=== PATIENT | female | born 1995 | race Caucasian/White ===

== ENCOUNTER 2021-05-31 21:57 | Emergency (ER) | payer SELFPAY ==
[2021-05-31 21:58] VITALS: BP 115/99; PULSE 76; RESP 18; TEMP 37.2; O2SAT 100
--- NOTE | 2021-05-31 23:17 | ED.GENADULT ---
HPI - General Adult General Chief complaint: Skin/Abscess/Foreign Body Stated complaint: bleeding from lip piercing Time Seen by Provider: 05/31/21 23:02 Source: patient Mode of arrival: EMS Limitations: no limitations History of Present Illness HPI narrative: Patient is a 26-year-old female complaining of bleeding of her lip piercing. Patient states that she had her lip pierced a few days ago. Patient states that she might of actually pulled on it and that is why it is bleeding. Patient denies any other pain or injury. Patient's not on any oral anticoagulants. Related Data Allergies Allergy/AdvReac Type Severity Reaction Status Date / Time No Known Allergies Allergy Unverified 01/29/16 22:43 Review of Systems Review of Systems: All systems reviewed & are unremarkable except as noted in HPI and below PMFSH Comments Past medical history: None Family history: Noncontributory Social history: Non-smoker no EtOH or drug use. Exam Const: General: healthy appearing, no acute distress and alert Nutritional Appearance: well nourished Orientation/consciousness: patient oriented x3 HENMT: Head: normal to inspection General nose exam: Normal external nose present Face and sinus: normal facial exam Mouth: Yes Normal oral and palatal mucosa present Throat: posterior oropharynx normal Other: Lower lip piercing, negative for any significant swelling or redness. Negative for any signs of abscess or cellulitis. No active bleeding. Eyes: Conjunctivae: conjunctivae normal Neck: Neck: normal visual inspection Course Vital Signs Vital signs: Vital Signs Temperature 37.2 C 05/31/21 21:58 Pulse Rate 76 05/31/21 21:58 Respiratory Rate 18 05/31/21 21:58 Blood Pressure 115/99 H 05/31/21 21:58 Pulse Oximetry 100 05/31/21 21:58 Temperature 37.2 C 05/31/21 21:58 Pulse Rate 76 05/31/21 21:58 Respiratory Rate 18 05/31/21 21:58 Blood Pressure 115/99 H 05/31/21 21:58 Pulse Oximetry 100 05/31/21 21:58 Medical Decision Making [facility] Narrative Medical decision making narrative: Patient reexamined, bleeding resolved Vital Signs Vital Signs: Vital Signs Temperature 37.2 C 05/31/21 21:58 Pulse Rate 76 05/31/21 21:58 Respiratory Rate 18 05/31/21 21:58 Blood Pressure 115/99 H 05/31/21 21:58 Pulse Oximetry 100 05/31/21 21:58 Temperature 37.2 C 05/31/21 21:58 Pulse Rate 76 05/31/21 21:58 Respiratory Rate 18 05/31/21 21:58 Blood Pressure 115/99 H 05/31/21 21:58 Pulse Oximetry 100 05/31/21 21:58 Discharge Plan Discharge Clinical Impression: Bleeding Patient Disposition: Home, Self-Care Condition: Improved Additional Instructions: Clean piercing daily as instructed Follow-up/Referrals: PHYSICIAN,BLOCKER POLISHING [Primary Care Provider] - Time of Disposition: 00:31
[2021-05-31] MEDS: TETANUS,DIPHTHERIA,AC PERTUSSIS ADULT (0.5 ML) BOOSTRIX IM (23:31)
[2021-06-01 00:36] VITALS: BP 109/78; PULSE 78; RESP 16; O2SAT 100
== END 2021-06-01 00:38 | disposition home or self-care (01) ==
PROVIDERS: Emergency Provider Emergency Medicine
DX: S01.541A Puncture wound with foreign body of lip, initial encounter (principal); Z23 Encounter for immunization; W45.8XXA Other foreign body or object entering through skin, initial encounter
CPT/HCPCS: 90471; 90715; 99282

== ENCOUNTER 2022-11-23 15:43 | Emergency (ER) | payer OTHER, SELFPAY ==
--- NOTE | ~2022-11-23 | US_ITS ---
EXAMINATION: US transvaginal DATE: 11/23/2022 22:30 INDICATION: RLQ pain w/ ovarian cyst, r/o torsion TECHNIQUE: Multiple transabdominal and endovaginal sonographic images of the pelvis were obtained. COMPARISON: CT abdomen and pelvis, same date. FINDINGS: Uterus: 6.4 x 3.7 x 4.3 cm. Endometrial complex measures 13 mm. Right Ovary: 2.2 x 5.1 x 7.6 cm. Vascular flow is present. 7.7 cm simple ovarian cyst. Left Ovary: 3.4 x 2.0 x 1.5 cm. Vascular flow is present. There is no free fluid in the pelvis. IMPRESSION: 7.7 cm simple right ovarian cyst, for which gynecology referral should be considered, given that symp tomatic cysts of this size may be resected. No sonographic evidence of ovarian torsion. Otherwise nor mal pelvic sonogram findings. Reviewed, dictated and finalized at location K. FIGHTING EQUIPMENT SPECIALIST IMPRESSION: 7.7 cm simple right ovarian cyst, for which gynecology referral should be consi dered, given that symptomatic cysts of this size may be resected. No sonographi c evidence of ovarian torsion. Otherwise normal pelvic sonogram findings.
--- NOTE | ~2022-11-23 | CT_ITS ---
EXAMINATION: CT abdomen pelvis w con DATE: 11/23/2022 21:13 INDICATION: RLQ pain TECHNIQUE: Computed tomography (CT) of the abdomen and pelvis was performed with 100 mL Omnipaque-350 intravenous contrast. Automated exposure control and iterative reconstruction technique were employe d. The dose-length product was 372.56 mGy-cm. COMPARISON: None. FINDINGS: Lower thorax: Unremarkable Liver: Normal. Biliary/Gallbladder: Gallbladder is absent. No bile duct dilation. Pancreas: No mass or duct dilation. Spleen: Normal. Adrenals:No mass. Kidneys: Subcentimeter left upper pole hypodensity, too small to characterize but most likely represe nts a cyst. Left inferior pole scar. No suspicious mass, stone, or hydronephrosis. GI tract: Mild distal esophageal wall edema. No small or large bowel dilation. Normal appendix. Mesentery/Peritoneum: No ascites, mass, or free air. Retroperitoneum: No mass. Pelvis: 7.7 cm simple appearing right ovarian cyst, no septations or nodularity. The remaining pelvic organs are within normal limits. Soft Tissues: Soft tissues and body wall unremarkable. Bones: No acute osseous finding. IMPRESSION: Esophagitis. 7.7 cm simple appearing right ovarian cyst. Consider pelvic ultrasound for further ambrose cterization and to a establish a baseline for follow-up. Also consider gynecology referral, given kelly t symptomatic cysts of this size may undergo surgical resection. Reviewed, dictated and finalized at location K. SPLANT COORDINATOR IMPRESSION: Esophagitis. 7.7 cm simple appearing right ovarian cyst. Consider pelvic ultras ound for further characterization and to a establish a baseline for follow-up. Also consider gynecology referral, given that symptomatic cysts of this size ma y undergo surgical resection.
[2022-11-23 15:57] VITALS: BP 127/96; PULSE 111; RESP 20; TEMP 37.2; O2SAT 98
[2022-11-23 16:28] LABS: Basophils Absolute Auto 0.1 K/mm3 (0.0-0.1); Basophils Percent Auto 0.9 % (0.2-1.2); Eosinophils Absolute Auto 0.1 K/mm3 (0-0.3); Eosinophils Percent Auto 1.3 % (0-4.4); Hematocrit 41.6 % (37.0-47.0); Hemoglobin 13.8 g/dL (12.0-15.0); Immature Granulocyte Absolute 0.02 K/mm3 (0.00-0.031); Immature Granulocyte Percent A 0.3 % (0-0.5); Lymphocytes Absolute Auto 2.61 K/mm3 (0.9-3.2); Lymphocytes Percent Auto 33.6 % (18.3-44.2); Mean Corpuscular HGB Conc 33.2 g/dl (32-36); Mean Corpuscular Hemoglobin 29.6 pg (26-34); Mean Corpuscular Volume 89.3 fl (80-100); Mean Platelet Volume 9.6 fl (7.4-10.4); Monocytes Absolute Auto 0.5 K/mm3 (0.1-0.6); Neutrophils Absolute Auto 4.4 K/mm3 (1.3-6.7); Neutrophils Percent Auto 56.9 % (45.5-73.1); Platelet Count Result 285 k/mm3 (150-375); Red Blood Count 4.66 M/mm3 (4.2-5.4); Red Cell Distribution Width 12.1 % (11.5-14.5); White Blood Count 7.8 K/mm3 (4.5-10.0)
[2022-11-23 16:29] LABS: Appearance Urine Clear (Clear); Bilirubin Urine Negative (Negative); Blood Urine Negative (Negative); Color Urine Yellow (Yellow); Glucose Urine UA Negative (Negative); Ketones Urine Negative (Negative); Leukocyte Esterase Ur Negative LEU/UL (Negative); Nitrate Urine Negative (Negative); Protein Urine Negative (Negative); Urobilinogen Urine 0.2 mg/dL (<2.0)
[2022-11-23 16:31] LABS: Add Urine Microscopic? NO
[2022-11-23 16:39] LABS: Alanine Aminotransferase 23 U/L (6-35); Albumin Level 4.8 g/dL (3.5-5.1); Alkaline Phosphatase 51 U/L (38-126); Anion Gap 4 mmol/L (8-16); Aspartate Amino Transferase 24 U/L (14-36); Bilirubin,Total 0.7 mg/dL (0.2-1.3); Blood Urea Nitrogen 16 mg/dL (7-17); Calcium 9.3 mg/dL (8.4-10.2); Carbon Dioxide 30 mmol/L (22-30); Chloride 103 mmol/L (98-107); Estimated CRCL calculation 94 ml/min; Estimated Glomerular Filt Rate > 60; Glucose 93 mg/dL (65-110); Lipase 129 U/L (23-300); Potassium 4.3 mmol/L (3.4-5.0); Sodium 137 mmol/L (137-145)
[2022-11-23 20:13] LABS: Pregnancy On Board Control Positive; Urine Pregnancy Test Negative
--- NOTE | 2022-11-23 20:25 | ED.GENADULT ---
HPI - General Adult General Chief complaint: Abdominal Pain Stated complaint: abd pain Time Seen by Provider: 11/23/22 19:23 History of Present Illness HPI narrative: This is a 27-year-old female presenting ED with right lower quadrant pain. She described as a stabbing pain that radiates up into her flank and 3/10 in intensity. The pain comes and goes. She says she has felt pain like this before when she has had a kidney stone but also when she had an ovarian cyst rupture. She said the pain is worse with movement. She has had some nausea nausea and dizziness and some bloating. She denies vomiting chest pain difficulty breathing, urinary systems or risk for STDs. Related Data Allergies Allergy/AdvReac Type Severity Reaction Status Date / Time No Known Allergies Allergy Verified 11/23/22 19:22 Exam Narrative: APPEARANCE: No apparent distress. Head: atraumatic. EYES: EOMI, NOSE: Atraumatic NECK: Trachea midline RESPIRATORY: No increased rate of breathing CARDIOVASCULAR: RRR, ABDOMINAL: Nondistended, minor tenderness in the right lower quadrant but no guarding or rebound. No rebound tenderness. No psoas/obturator sign. MUSCULOSKELETAL: No obvious deformities NEURO: Alert. Moving 4/4 extremities SKIN:: Warm, dry. Normal color PSYCHIATRIC: Normal affect Course Vital Signs Vital signs: Vital Signs Temperature 98.9 F 11/23/22 15:57 Pulse Rate 111 H 11/23/22 15:57 Respiratory Rate 20 11/23/22 15:57 Blood Pressure 127/96 H 11/23/22 15:57 Pulse Oximetry 98 11/23/22 15:57 Oxygen Delivery Room Air 11/23/22 15:57 Temperature 98.9 F 11/23/22 15:57 Pulse Rate 82 11/23/22 20:40 Respiratory Rate 16 11/23/22 20:40 Blood Pressure 122/74 11/23/22 20:40 Pulse Oximetry 98 11/23/22 20:40 Oxygen Delivery Room Air 11/23/22 15:57 Medical Decision Making [facility] Narrative Medical decision making narrative: -Presentation: 27-year-old female presenting with 1 week of right lower quadrant pain. 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 -External Chart Review: None -Hx from independent Sources: none -Discussion of Management/Consultants: none -Independent interpretation of studies: CBC was within normal limits. Metabolic panel is within normal limits. Urinalysis was not indicative of infection. CT abdomen pelvis showed a 7.7 m right ovarian cyst. Transvaginal ultrasound redemonstrated the cyst. No evidence of ovarian torsion. -Dx tests considered but not ordered: None -Procedures: none -Interventions: 2 L of fluid, 1000 mg Tylenol -Shared decision making / Disposition: I discussed patient's results with her. She does have a large cyst that may require intervention. She will be given an OBGYN follow-up. She is instructed take Motrin and Tylenol for pain control. She is also instructed to take stool softener since she is having pain while straining. All of these medications or [id number] and patient said she would obtain them herself. -RX: None Vital Signs Vital Signs: Vital Signs Temperature 98.9 F 11/23/22 15:57 Pulse Rate 111 H 11/23/22 15:57 Respiratory Rate 20 11/23/22 15:57 Blood Pressure 127/96 H 11/23/22 15:57 Pulse Oximetry 98 11/23/22 15:57 Oxygen Delivery Room Air 11/23/22 15:57 Temperature 98.9 F 11/23/22 15:57 Pulse Rate 82 11/23/22 20:40 Respiratory Rate 16 11/23/22 20:40 Blood Pressure 122/74 11/23/22 20:40 Pulse Oximetry 98 11/23/22 20:40 Oxygen Delivery Room Air 11/23/22 15:57 Lab Data 11/23/22 16:15 11/23/22 16:15 Labs: Lab Results 11/23/22 11/23/22 11/23/22 Range/Units 16:15 16:15 16:20 WBC 7.8 (4.
[2022-11-23 20:40] VITALS: BP 122/74; PULSE 82; RESP 16; O2SAT 98
[2022-11-23] MEDS: SODIUM CHLORIDE 0.9% IV 2,000 ML 999 ML IV CONT (20:49)
[2022-11-23 23:30] VITALS: BP 112/72; PULSE 78; RESP 16; O2SAT 99
== END 2022-11-23 23:30 | disposition home or self-care (01) ==
PROVIDERS: Emergency Medicine; Emergency Provider Emergency Medicine
DX: N83.209 Unspecified ovarian cyst, unspecified side (principal)
CPT/HCPCS: 36415; 74177; 76830; 80053; 81003; 81025; 83690; 85025; 96361; 96365; 99284; J0131; J7030; Q9967

== ENCOUNTER 2023-01-12 10:47 | Outpatient (CLI) | payer OTHER, SELFPAY ==
--- NOTE | ~2023-01-12 | US_ITS ---
EXAMINATION: US pelvic complete DATE: 01/12/2023 11:22 INDICATION: Ovarian cyst TECHNIQUE: Multiple transabdominal and endovaginal sonographic images of the pelvis were obtained. COMPARISON: None. FINDINGS: The uterus measures 6.3 x 4.4 x 3.4 cm. The endometrial complex measures 5 mm. The right ov fanny measures 3.3 x 2.1 x 2.2 cm. The previously described cystic lesion right adnexa has resolved. Th ere is a 1.4 cm cyst or follicle the right ovary. The left ovary measures 3.6 x 1.7 x 2.1 cm. There i s normal vascular flow in the ovaries. There is no free fluid in the pelvis. IMPRESSION: 1. Interval resolution of the previously described right ovarian cyst. Reviewed, dictated and finalized at location L.
== END 2023-01-12 10:48 | disposition home or self-care (01) ==
PROVIDERS: PCP Physician Assistant; Visit Provider Obstetrics & Gynecology Gynecology
DX: N83.201 Unspecified ovarian cyst, right side (principal)
CPT/HCPCS: 76856

== ENCOUNTER 2024-05-06 09:36 | Emergency (ER) | payer OTHER, SELFPAY ==
[2024-05-06 09:55] VITALS: BP 126/90; PULSE 80; RESP 14; TEMP 37; O2SAT 100
--- NOTE | 2024-05-06 10:20 | ED.EYEPROB ---
HPI - Eye Problem General Chief complaint: Eye Problems Stated complaint: Eye Infection Time Seen by Provider: 05/06/24 10:20 Source: patient Mode of arrival: ambulatory Limitations: no limitations History of Present Illness HPI Narrative: 29-year-old female presented for complaint of right upper eyelid redness, swelling and pain. Onset yesterday when she woke up. Denies eye injury; denies drainage, vision changes, photophobia. Patient states the left eye upper lid also has a 'bump' increasing in size over the past few months. denies any pain or swelling with this site. No treatment prior to arrival. Does not wear contact lenses. chief complaint: eye pain Related Data Allergies Allergy/AdvReac Type Severity Reaction Status Date / Time No Known Allergies Allergy Verified 05/06/24 09:50 Review of Systems Review of Systems: CONSTITUTIONAL: Denies body aches, fever, chills EYES:Endorses swelling, redness and pain to right upper eye; Denies visual changes, FB sensation, photophobia ENT: Denies rhinorrhea, congestion, sore throat, or otalgia. CARDIOVASCULAR: Denies chest pain, palpitations RESPIRATORY: Denies cough or dyspnea. SKIN: Denies rash, itching, or wounds. MUSCULOSKELETAL: Denies back pain, joint pain, or myalgia. NEUROLOGIC: Denies headache, numbness, tingling, or weakness. All systems reviewed & are unremarkable except as noted in HPI and below PMFSH Comments At time of signature, I have reviewed and agree with nursing past medical, surgical, social and family history unless otherwise noted. Please see nursing chart for further information. There is no relevant family history pertinent to the presenting complaint Exam Narrative: GENERAL: Well-appearing HEAD: Normocephalic, atraumatic. EYES: Right upper eye lid swelling/redness, tender to medial aspect upper lid c/w internal stye. No conjunctival injection or purulent drainage. PERRLA, EOMI. Lid eversion shows no FB. ENT: Mucous membranes pink and moist. No rhinorrhea. TMs normal bilaterally. Throat normal. Uvula midline. CHEST: Clear to auscultation. HEART: Regular rate and rhythm. SKIN: Warm, dry, no rash. Normal skin turgor. NEURO: No focal deficits. Alert and oriented x3 PSYCH: Normal affect. Course Course Emergency Course: Patient is aware of diagnosis, understands and agrees to treatment plan. Anticipatory guidance given. Patient agrees to follow-up as directed and is aware of reasons to seek care at the emergency department. Portions of this record may have been created with voice recognition software Level of Care: Express Care Visit Vital Signs Vital signs: Vital Signs Temperature 98.6 F 05/06/24 09:55 Pulse Rate 80 05/06/24 09:55 Respiratory Rate 14 05/06/24 09:55 Blood Pressure 126/90 05/06/24 09:55 Pulse Oximetry 100 05/06/24 09:55 Oxygen Delivery Room Air 05/06/24 09:55 Temperature 98.6 F 05/06/24 09:55 Pulse Rate 80 05/06/24 09:55 Respiratory Rate 14 05/06/24 09:55 Blood Pressure 126/90 05/06/24 09:55 Pulse Oximetry 100 05/06/24 09:55 Oxygen Delivery Room Air 05/06/24 09:55 MDM - Eye Problem MDM Narrative Medical decision making narrative: Discussed physical exam findings consistent with a right internal hordeolum. Advised ophtho consult for the left eye chronic irritation. Advised supportive measures and signs/symptoms to go to the ER. Pt is appropriate for outpt treatment and f/u. Differential Diagnosis Differential diagnosis: Likely corneal abrasion, conjunctivitis, acute iritis and other Discharge Plan Discharge Clinical Impression: Internal hordeolum of right eye Patient Disposition: Home, Self-Care Condition: Stable Instructions: Antibiotic Narciso Valenzuela (ED) Additional Instructions: Apply warm, moist compresses on the affected area frequently (for 5 to 10 minutes three to five times per day) in order to help with drainage. Massage an
== END 2024-05-06 10:40 | disposition home or self-care (01) ==
PROVIDERS: Emergency Provider Nurse Practitioner Family
DX: H00.021 Hordeolum internum right upper eyelid (principal); G90.A Postural orthostatic tachycardia syndrome [POTS]
CPT/HCPCS: 99213; G0463

== ENCOUNTER 2024-06-19 15:26 | Emergency (ER) | payer OTHER, SELFPAY ==
[2024-06-19 15:37] VITALS: BP 118/69; PULSE 80; RESP 16; TEMP 36.9; O2SAT 99
--- NOTE | 2024-06-19 15:43 | ED.URI ---
HPI - URI/Sore Throat General Chief Complaint: Upper Respiratory Infection Stated Complaint: Sinus Infection Symptoms Time Seen by Provider: 06/19/24 15:43 Source: patient, RN notes reviewed and old records reviewed Mode of arrival: ambulatory Limitations: no limitations History of Present Illness HPI Narrative: 29-year-old female to Express Care for complaint of sinus pressure and pain, sore throat, nonproductive cough for 5 days. Patient has attempted to treat at home with DayQuil and NyQuil with little relief. patient reports that several people at her workplace are sick and she was concerned because her symptoms not improving whatsoever. Patient denies difficulty swallowing, shortness of breath, chest pain, ear pain, dizziness, headache, allergies, pertinent medical history. Patient able to tolerate fluids by mouth. Respirations even and non labored. Patient is sitting uncomfortably in exam room, appears tired. Respirations even and nonlabored. Patient able to speak in complete sentences without difficulty. Patient in no acute distress. Related Data Allergies Allergy/AdvReac Type Severity Reaction Status Date / Time No Known Allergies Allergy Verified 06/19/24 15:32 Review of Systems Review of Systems: All systems reviewed & are unremarkable except as noted in HPI and below Constitutional: Constitutional: Reports no additional constitutional complaints Eyes: Eyes: Reports no additional eye complaints ENT: Reports as per HPI, Reports sinus pain, Reports sinus pressure and Reports sore throat Cardiovascular: Cardiovascular: Reports no additional cardiovascular complaints, Denies chest pain and Denies dyspnea Respiratory: Respiratory: Reports no additional respiratory complaints, Reports cough and Denies dyspnea Musculoskeletal: Musculoskeletal: Reports no additional musculoskeletal complaints Neurologic: Reports system reviewed and no additional complaints, except as documented Psychiatric: Psychiatric: Reports no additional psychiatric complaints PMFSH Comments At the time of my signature, I reviewed and agree with the nursing past medical, surgical, social, and family history. There is no relevant family history pertinent to the patient complaint. Exam Const: General: cooperative, no acute distress, well developed, alert, tired appearing, uncomfortable, well groomed and well nourished Nutritional Appearance: well nourished Orientation/consciousness: patient oriented x3 Limitations: no limitations HENMT: Head: normal to inspection Ears: external ears normal, Abnormal EAC present and TM abnormal with fluid behind the TM bilateral and diffuse Face/Nose/Sinus: Normal external nose present, Normal nares present, Abnormal mucous membranes and turbinates present erythematous, Nasal discharge present, normal facial exam, No erythema and No edema Face and sinus: normal facial exam, no erythema and no edema Mouth: Yes Normal oral and palatal mucosa present Throat: posterior oropharynx abnormal erythema and postnasal drainage Eyes: General: appearance normal, both eyes and all related structures Neck: Neck: normal visual inspection, full ROM and no meningeal signs Lymphatic: no lymphadenopathy noted and no lymphedema noted Chest: Chest palpation & inspection: normal inspection of the chest Resp: Effort & Inspection: normal respiratory effort and able to speak in complete sentences Auscultation: clear to auscultation bilaterally Cardio: Jugular venous distension: no JVD Rate: regular rate Rhythm: regular rhythm Back/Spine/Pelvis: Cervical Spine: cervical ROM normal Skin: General skin exam: normal color, no rashes or lesions noted and turgor normal Neuro: General: patient oriented x3, gait normal, moves all extremities and no meningeal signs Speech: normal speech Gait exam (Neuro): Normal gait present Extrem: General: normal to inspection, full ROM and capillary refill normal Psych: Appearance: grossl
[2024-06-19 15:46] LABS: EDSTREPNEGPOS1 Negative (Negative)
== END 2024-06-19 15:56 | disposition home or self-care (01) ==
PROVIDERS: Emergency Provider Nurse Practitioner Family
DX: J32.9 Chronic sinusitis, unspecified (principal)
CPT/HCPCS: 87081; 87880; 99213; G0463

== ENCOUNTER 2024-08-31 13:36 | Emergency (ER) | payer OTHER, SELFPAY ==
--- NOTE | ~2024-08-31 | US_ITS ---
US OB <=14 wk fetus w TV DATE: 08/31/2024 15:23 INDICATION: Vaginal bleeding, pain; medical at 5 weeks. TECHNIQUE: Real-time imaging via transabdominal and transvaginal approaches COMPARISON: 01/12/2023 pelvic ultrasound examination FINDINGS: The uterus measures 7.5 cm height, 3.9 cm AP and 4.5 cm transverse dimension. The central endometrial echo complex is heterogeneous and irregular, measures approximately 9 mm AP d imension. No intrauterine gestational sac is detected. The right ovary measures 2.4 x 1.9 x 2.5 cm. The left ovary measures 2.7 x 1.7 x 3.3 cm. IMPRESSION: Probable retained products and/or blood clots within the endometrial cavity, which measur es up to 9 mm AP dimension Reviewed, dictated and finalized at [facility] Reviewed, dictated and finalized at [facility] HAND IMPRESSION: Probable retained products and/or blood clots within the endometria l cavity, which measures up to 9 mm AP dimension
[2024-08-31 13:37] VITALS: BP 123/86; PULSE 106; RESP 16; TEMP 36.4; O2SAT 99
--- NOTE | 2024-08-31 14:17 | ED.PREGNANCY ---
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 Patient reports she was approximately 5-6 weeks gestation and underwent a medical through [facility]. She began the medication on Monday. She passed the fetus after this 2nd round of medication on Monday, but is still having fairly consistent vaginal bleeding. States she has had some clots in her blood today. Reports having fairly significant pain throughout her lower abdomen. Has not taken anything for pain today. Reports intermittent nausea, denies vomiting. Denies fevers. Patient is (Hx of miscarriage at age 17). Related Data Allergies Allergy/AdvReac Type Severity Reaction Status Date / Time No Known Allergies Allergy Verified 08/31/24 15:26 Review of Systems Review of Systems: All systems reviewed & are unremarkable except as noted in HPI. All systems reviewed & are unremarkable except as noted in HPI and below Exam Narrative: GENERAL: Mildly uncomfortable appearing, well-nourished, non-toxic, in no acute distress. HEAD: Normocephalic, atraumatic. RESPIRATORY: Airway patent, respirations nonlabored. Clear to auscultation bilaterally, no rales, rhonchi, wheezing. CARDIOVASCULAR: Borderline tachycardic with regular rhythm without murmurs, rubs, or gallops. ABDOMINAL: Soft, diffuse tenderness throughout lower abdomen, nondistended. Normoactive BS. PELVIC: Normal external genitalia. Very mild amount of dark red blood in vaginal vault. Easily cleared, no evidence of hemorrhage or pooling of fluid. Small clot coming through minimally dilated cervical os. Able to remove with ring forceps. MUSCULOSKELETAL: Moves all extremities. No gross deformities. SKIN: Warm, dry, normal color. NEURO: A&O X3. Speech clear. PSYCHIATRIC: Appropriate mood and affect. Normal interaction. Course Vital Signs Vital signs: Vital Signs Temperature 97.6 F 08/31/24 13:37 Pulse Rate 106 H 08/31/24 13:37 Respiratory Rate 16 08/31/24 13:37 Blood Pressure 123/86 08/31/24 13:37 Pulse Oximetry 99 08/31/24 13:37 Oxygen Delivery Room Air 11/23/24 13:37 Temperature 97.6 F 08/31/24 13:37 Pulse Rate 60 08/31/24 16:37 Respiratory Rate 17 08/31/24 16:37 Blood Pressure 106/79 08/31/24 16:37 Pulse Oximetry 100 08/31/24 16:37 Oxygen Delivery Room Air 08/31/24 13:37 MDM - OB/Uterine Contractions MDM Narrative Medical decision making narrative: Patient presented to ED with lower abdominal pain, vaginal bleeding, [facility]. Patient mildly tachycardic upon arrival. Mildly uncomfortable appearing. Laboratory studies are fairly unremarkable, no leukocytosis, stable H&H. Beta hCG 56. Patient's blood type is A+, no indication for rhogam. UA w/o evidence of infection. Pelvic exam with small clot coming from cervical os but was able to remove with ring forceps. Otherwise no significant concerning findings. No evidence of hemorrhage. Pelvic ultrasound obtained and showing: IMPRESSION: Probable retained products and/or blood clots within the endometrial cavity, which measures up to 9 mm AP dimension. Will discuss with OBGYN. Discussed case with Dr. Zhang, OBGYN communications senior associate, advised US is normal findings few days after , body is still trying to pass POC. Recommended continued motrin,, doxycycline x7d, f/u in office. Patient is in agreement with this plan. She is feeling better with supportive therapy. Advised to continue Tylenol, ibuprofen, heating pad. Will prescribe short course of Troy for home use breakthrough pain. Recommended follow-up in office with OBGYN. Given strict return precautions. She agrees with plan. Discharged in stable condition. Medical Records Attestation: I reviewed the patient's medical records. Lab Data Attestation: I reviewed the patient's lab results. 08/31/24 14:57 08/31/24 14:57 Labs: Lab Results 08/31/24 08/31/24 Range/Units 14:57 15:27 WBC 5.8 (4.5-10.0) K/mm3 RBC 4.36 (4.2-5.4) M/mm3 Hgb 12.9 (12.0-15.0) g/dL Hct 38.4 (37.0-47.0) % MCV 88.1 (80-100) fl MCH 29.6 (26-34) pg MCHC 33.6 (32-36) g/dl RDW 12.3 (11.5-14.5) % Plt Count 249 (150-375) k/mm3 MPV 9.6 (7.4-10.4) fl Immature Gran % (Auto) 0.3 (0-0.5) % Neut % (Auto) 52.9 (45.5-73.1) % Lymph % (Auto) 35.2 (18.3-44.2) % Mercer % (Auto) 9.7 H (2.6-8.5) % Eos % (Auto) 1.0 (0-4.4) % Baso % (Auto) 0.9 (0.2-1.2) % Lymph # (Auto) 2.03 (0.9-3.2) K/mm3 Mercer # (Auto) 0.6 (0.1-0.6) K/mm3 Eos # (Auto) 0.1 (0-0.3) K/mm3 Baso # (Auto) 0.1 (0.0-0.1) K/mm3 Abs Immat Gran (auto) 0.02 (0.00-0.031) K/mm3 Absolute Neuts (auto) 3.0 (1.3-6.7) K/mm3 Absolute Nucleated RBC 0.000 (0.0-0.012) K/mm3 Nucleated RBC % 0.0 (0.0-0.2) % PT 14.5 (11.1-14.7) Seconds INR 1.1 APTT 27.3 (22.3-36.8) Seconds Sodium 139 (137-145) mmol/L Potassium 4.1 (3.4-5.0) mmol/L Chloride 108 H (98-107) mmol/L Carbon Dioxide 25 (22-30) mmol/L Anion Gap 6 (4-12) mmol/L BUN 8 D (7-17) mg/dL Creatinine 0.80 (0.7-1.0) mg/dL Estim Creat Clear Calc 93 ml/min Estimated GFR > 60 (59 - ) Glucose 82 (65-110) mg/dL Calcium 8.8 (8.4-10.2) mg/dL Total Bilirubin 0.9 (0.2-1.3) mg/dL AST 22 (14-36) U/L ALT 13 (6-35) U/L Alkaline Phosphatase 47 (38-126) U/L Total Protein 7.0 (6.3-8.2) g/dL Albumin 4.0 (3.5-5.1) g/dL Beta HCG, Quant 56.02 mIU/ML Urine Color Yellow (Yellow) Urine Appearance Clear (Clear) Urine pH 7.5 (5.0-9.0) Ur Specific [place] 1.020 (1.001-1.035) Urine Protein Negative (Negative) mg/dL Urine Glucose (UA) Negative (Negative) mg/dL Urine Ketones 3+ H (Negative) mg/dL Ur Blood (Man) 2+ H (Negative) Urine Nitrate Negative (Negative) Urine Bilirubin Negative (Negative) Urine Urobilinogen 1.0 (<2.0) mg/dL Leukocyte Esterase Rfl Negative (Negative) GABRIELLE/UL Urine RBC 21-50 H (0-2) /hpf Urine WBC 0-5 (0-3) /hpf Ur Squamous Epith Cells None seen (Few) /hpf Urine Bacteria None seen /hpf Urine Casts 0-2 Blood Type A Positive Antibody Screen Negative Screen Not Reportable Baby's Blood Type Not Reportable Baby's TAYLOR Not Reportable Doses of RhIg Required 0 Imaging Data Attestation: I personally reviewed and interpreted this imaging study as follows: Radiologist's impression: ITS Impressions Obstetrics Ultrasound 08/31/24 15:26 IMPRESSION: Probable retained products and/or blood clots within the endometrial cavity, which measures up to 9 mm AP dimension Discharge Plan Discharge Clinical Impression: in first trimester, Intermittent lower abdominal pain Patient Disposition: Home, Self-Care Condition: Stable Instructions: Antibiotic Form, Miscarriage (ED) Additional Instructions: Take antibiotics as prescribed. Continue Tylenol and ibuprofen around the clock as needed for pain. Utilize Troy as needed for more severe pain. You may also try heating pad to abdomen. Follow-up with OBGYN for further evaluation. Return to the ED if you experience worsening or severe pain or bleeding, unable to keep down food or drink, passing out, fevers, or any other symptoms of concern. Prescriptions: New doxycycline monohydrate 100 mg tablet 100 mg PO BID 7 Days Qty: 14 0RF hydrocodone-acetaminophen 5-325 mg tablet 1 tablet PO Q6H PRN (Reason: pain) Qty: 5 0RF No Action amoxicillin 875 mg tablet 875 mg PO Q12H Qty: 20 0RF Follow-up/Referrals: PHYSICIAN,RETURNED ITEM CLERK [Primary Care Provider] - Noe Zhang MD [Physician] - (OBGYN) Time of Disposition: 16:29
[2024-08-31 15:03] LABS: Basophils Absolute Auto 0.1 K/mm3 (0.0-0.1); Basophils Percent Auto 0.9 % (0.2-1.2); Eosinophils Absolute Auto 0.1 K/mm3 (0-0.3); Hematocrit 38.4 % (37.0-47.0); Hemoglobin 12.9 g/dL (12.0-15.0); Immature Granulocyte Absolute 0.02 K/mm3 (0.00-0.031); Immature Granulocyte Percent A 0.3 % (0-0.5); Lymphocytes Absolute Auto 2.03 K/mm3 (0.9-3.2); Lymphocytes Percent Auto 35.2 % (18.3-44.2); Mean Corpuscular HGB Conc 33.6 g/dl (32-36); Mean Corpuscular Hemoglobin 29.6 pg (26-34); Mean Corpuscular Volume 88.1 fl (80-100); Mean Platelet Volume 9.6 fl (7.4-10.4); Monocytes Absolute Auto 0.6 K/mm3 (0.1-0.6); Monocytes Percent Auto 9.7 % (2.6-8.5); Neutrophils Percent Auto 52.9 % (45.5-73.1); Platelet Count Result 249 k/mm3 (150-375); Red Blood Count 4.36 M/mm3 (4.2-5.4); Red Cell Distribution Width 12.3 % (11.5-14.5); White Blood Count 5.8 K/mm3 (4.5-10.0)
[2024-08-31] MEDS: MORPHINE SULFATE (*CRX) 4 MG/ML INJ IV PUSH (15:07)
[2024-08-31] MEDS: ACETAMINOPHEN 500 MG TABLET 1000 MG PO (15:07)
[2024-08-31] MEDS: ONDANSETRON INJ 4 MG/2 ML VIAL IV PUSH (15:07)
[2024-08-31 15:12] LABS: Alanine Aminotransferase 13 U/L (6-35); Alkaline Phosphatase 47 U/L (38-126); Anion Gap 6 mmol/L (4-12); Aspartate Amino Transferase 22 U/L (14-36); Bilirubin,Total 0.9 mg/dL (0.2-1.3); Blood Urea Nitrogen 8 mg/dL (7-17); Calcium 8.8 mg/dL (8.4-10.2); Carbon Dioxide 25 mmol/L (22-30); Chloride 108 mmol/L (98-107); Estimated CRCL calculation 93 ml/min; Estimated Glomerular Filt Rate > 60; Glucose 82 mg/dL (65-110); Potassium 4.1 mmol/L (3.4-5.0); Sodium 139 mmol/L (137-145)
[2024-08-31 15:15] LABS: INR 1.1; Prothrombin Time 14.5 Seconds (11.1-14.7)
[2024-08-31 15:16] LABS: Partial Thromboplastin Time 27.3 Seconds (22.3-36.8)
[2024-08-31 15:25] VITALS: BP 116/74; PULSE 66; RESP 20; O2SAT 100
[2024-08-31 15:28] LABS: Beta HCG Quantitative 56.02 mIU/ML
[2024-08-31 15:34] LABS: Add Urine Microscopic? YES; Appearance Urine Clear (Clear); Bacteria Urine None Seen /hpf; Bilirubin Urine Negative (Negative); Blood Urine 2+ (Negative); Color Urine Yellow (Yellow); Glucose Urine UA Negative (Negative); Ketones Urine 3+ mg/dL (Negative); Leukocyte Esterase Ur Negative LEU/UL (Negative); Nitrate Urine Negative (Negative); Non Pathogenic Casts 0-2; Protein Urine Negative (Negative); RBC Urine 21-50 /hpf (0-2); Squamous Epithelial Cell Urine None Seen /hpf (Few); WBC Urine 0-5 /hpf (0-3); pH Urine 7.5 (5.0-9.0)
[2024-08-31 16:37] VITALS: BP 106/79; PULSE 60; RESP 17; O2SAT 100
== END 2024-08-31 16:42 | disposition home or self-care (01) ==
PROVIDERS: Emergency Provider Physician Assistant
DX: O03.4 Incomplete spontaneous abortion without complication (principal); R10.30 Lower abdominal pain, unspecified
CPT/HCPCS: 36415; 76801; 76817; 80053; 81001; 84702; 85025; 85461; 85610; 85730; 86850; 86900; 86901; 96374; 96375; 99284; A9270; J2270; J2405